=== PATIENT | male | born 1960 | race American Indian/Alaskan Native ===

== ENCOUNTER 2018-01-25 16:39 | Emergency (ER) | payer BC, OTHER ==
[2018-01-25 16:52] VITALS: BP 129/86
[2018-01-25] MEDS ORDERED: PEPCID IV ONE ×2 (16:55→17:02)
[2018-01-25] MEDS ORDERED: BENADRYL ONE (16:55)
[2018-01-25] MEDS ORDERED: DECADRON ONE (16:55)
[2018-01-25] MEDS ORDERED: BENADRYL IV ONE (17:02)
[2018-01-25] MEDS ORDERED: DECADRON IV ONE (17:02)
--- NOTE | 2018-01-25 20:05 | Emergency Department Report ---
HPI - General Chief Complaint: Allergic Reaction Time Seen by Provider: 01/25/18 20:00 - HPI HPI: 58-year-old man comes in for being stung by a bee yesterday approximately 11: 00. Patient reports swelling to the upper lip stays dry throat states throat feels like it is closing but he is able to swallow and breathe with no problems. Patient states that his right ear is clogged. Denies any bee sting allergies speaks in complete sentences and denies any swelling of his tongue. Patient reports he has no past medical history he currently takes no medications on a daily basis and he has no known drug allergies. ED Past Medical Hx - Past Medical History Previous Medical History?: No - Surgical History Past Surgical History?: No - Social History Smoking Status: Current Every Day Smoker Substance Use Type: Alcohol - Medications Home Medications: Home Medications Medication Instructions Recorded Confirmed Last Taken Type Acetaminophen/Codeine [Tylenol #3] 1 tab PO Q8H PRN #15 tablet 01/25/15 Unknown Rx Cyclobenzaprine [Flexeril 10 MG 10 mg PO TID PRN #15 tablet 01/25/15 Unknown Rx TAB] predniSONE [Deltasone] 20 mg PO QDAY 3 Days #3 tab 01/25/18 Unknown Rx ED Review of Systems ROS: Stated complaint: BEE STING/UPPER LIP/SWELLING/DRY MOUTH Other details as noted in HPI Constitutional: denies: chills, fever Eyes: denies: eye pain, eye discharge, vision change ENT: other (right ear clogged) Respiratory: denies: cough, shortness of breath, wheezing Skin: other (swelling to the upper lip) Physical Exam - Physical Exam Vital Signs: Vital Signs 01/25/18 16:47 Temperature 98.5 F Pulse Rate 85 Respiratory 20 Rate Blood Pressure 129/86 O2 Sat by Pulse 99 Oximetry Physical Exam: GENERAL APPEARANCE: Well developed, well nourished, in no acute distress. SKIN: Inspection of the skin reveals no rashes, ulcerations or petechiae. HEENT: The sclerae were anicteric and conjunctivae were pink and moist. Extraocular movements were intact and pupils were equal, round, and reactive to light . External inspection of the ears and nose showed no scars, lesions, or masses. Lips, teeth, and gums showed normal mucosa. The oral mucosa, hard and soft palate, tongue and posterior pharynx were normal. Left internal ear with cerumen impaction, right ear clear NECK: Supple and symmetric. There was no thyroid enlargement, and no tenderness , or masses were felt. LUNGS: Auscultation of the lungs revealed normal breath sounds without any other adventitious sounds or rubs. CARDIOVASCULAR: There was a regular rate and rhythm without any murmurs, gallops , rubs. The carotid pulses were normal and 2+ bilaterally without bruits. Peripheral pulses were 2+ and symmetric. MUSCULOSKELETAL: Gait was normal. EXTREMITIES: No cyanosis, clubbing or edema. NEUROLOGIC: Alert and oriented x 3. Normal affect. Gait was normal. ED Course Vital Signs 01/25/18 16:47 Temperature 98.5 F Pulse Rate 85 Respiratory 20 Rate Blood Pressure 129/86 O2 Sat by Pulse 99 Oximetry ED Medical Decision Making - Medical Decision Making Patient has been evaluated by this provider fast track. Patient was given 10 mg of dexamethasone , Pepcid 20 mg, Benadryl 25 mg all IV Discussed the patient I'll place him on prednisone 20 mg for the next 3 days and for him to continue with the Benadryl 25 mg every 6 hours as needed for swelling. Referral will be placed the patient to be followed up. Patient verbalized understanding. Critical care attestation.: If time is entered above; I have spent that time in minutes in the direct care of this critically ill patient, excluding procedure time. ED Disposition Clinical Impression: Bee sting allergy, Impacted cerumen of right ear Bee sting reaction Qualifiers: Encounter type: initial encounter Injury intent: accidental or unintentional Qualified Code(s): T63.441A - Toxic effect of venom of bees, accidental ( unintentional), initial encounter Disposition: DC-01 TO HOME OR SELFCARE Is pt being admited?: No Does the pt Need Aspirin: No Condition: Stable Instructions: Insect Bite or Sting (ED), Prednisone (By mouth) Additional Instructions: Please take prednisone as prescribed for the next 3 days. Please obtain Benadryl [id number] to take every 6 hours as needed for swelling itchiness. He can get [id number] Debrox ear solution kit to minimize use wax production of her right ear. These follow-up with her primary care provider I have listed one below. Prescriptions: predniSONE [Deltasone] 20 mg PO QDAY 3 Days #3 tab Referrals: PRIMARY CARE, [Primary Care Provider] - 3-5 Days JAZMINE CORONEL MD [Staff Physician] - 3-5 Days Forms: Work/School Release Form(ED)
== END 2018-01-25 20:10 | disposition home or self-care (01) ==
LOC: ED 16:39
DX: T63.441A Toxic effect of venom of bees, accidental (unintentional), initial encounter (principal); R22.0 Localized swelling, mass and lump, head; H61.21 Impacted cerumen, right ear; R68.2 Dry mouth, unspecified; F17.200 Nicotine dependence, unspecified, uncomplicated; Y92.89 Other specified places as the place of occurrence of the external cause
CPT/HCPCS: 96374; 96375; 99282; J1100; J1200